=== PATIENT | male | born 1990 | race American Indian/Alaskan Native ===

== ENCOUNTER 2016-09-20 13:10 | Outpatient (CLI) | payer OTHER ==
[2016-09-20 13:27] LABS: Basophils % (Auto) 0.4 % (0.0-1.8); Eosinophils % (Auto) 0.8 % (0.0-4.3); Hematocrit 45.9 % (35.5-45.6); Hemoglobin 14.8 gm/dl (11.8-15.2); Mean Corpuscular HGB Conc 32 % (32-34); Mean Corpuscular Volume 70 fl (84-94); Red Blood Count 6.55 M/mm3 (3.65-5.03); Red Cell Distribution Width 13.8 % (13.2-15.2); White Blood Count 3.2 K/mm3 (4.5-11.0)
[2016-09-20 13:41] LABS: Mean Corpuscular Hemoglobin 23 pg (28-32)
[2016-09-20 13:43] LABS: Alanine Aminotransferase 25 units/L (7-56); Albumin 4.9 g/dL (3.9-5); Albumin/Globulin Ratio 1.9 %; Alkaline Phosphatase 87 units/L (35-129); BUN/Creatinine Ratio 15.71; Bilirubin,Total 0.7 mg/dL (0.1-1.2); Blood Urea Nitrogen 11 mg/dL (9-20); Calcium 9.9 mg/dL (8.4-10.2); Carbon Dioxide 30 mmol/L (22-30); Chloride 98.7 mmol/L (98-107); Glucose 109 mg/dL (75-100); Sodium 141 mmol/L (137-145); Total Protein 7.5 g/dL (6.3-8.2)
[2016-09-20 13:45] LABS: Anion Gap 16 mmol/L
[2016-09-20 14:12] LABS: Erythrocyte Sedimentation Rate 1 mm/Hr (0-20)
[2016-09-20 14:33] LABS: Platelet Count 180 K/mm3 (140-440)
== END 2016-09-20 13:11 | disposition home or self-care (01) ==
LOC: LAB 13:10
PROVIDERS: ATTEND Psychiatry & Neurology Neurology
DX: G40.A19 Absence epileptic syndrome, intractable, without status epilepticus (principal)
CPT/HCPCS: 36415; 80053; 82140; 85025; 85652